=== PATIENT | female | born 1975 | race African-American/Black ===

== ENCOUNTER 2016-07-01 22:02 | Observation (INO) ==
[2016-07-01 22:45] LABS: Basophils % 0.1 % (0.0-0.8); Eosinophils # 0.1 10*3/uL (0.0-0.87); Eosinophils % 1.1 % (0.00-10.9); Hematocrit 39.2 VOL% (35.7-47.0); Hemoglobin 13.3 GM/DL (12.0-16.0); Immature Granulocytes % 0.3 %; Immature Granulocytes Absolute 0.02 #; Lymphocytes % 25.6 % (21.3-54.2); Mean Corpuscular HGB Conc 33.9 GM/DL (32-36); Mean Corpuscular Hemoglobin 26 PG (27-34); Mean Corpuscular Volume 76.6 FL (87-102); Monocytes # 0.4 10*3/uL (0.11-0.8); Monocytes % 5.3 % (1.7-12.7); Neutrophils # 5.4 10*3/uL (1.4-7.4); Neutrophils % 67.6 % (38.7-73.9); Platelet Count 212 T/CUMM (130-400); Red Blood Count 5.12 MC/CUMM (3.8-5.5); Red Cell Distribution Width 12.1 % (9.3-17.3)
--- NOTE | 2016-07-01 22:49 | EKG Report ---
Stationary ECG Study [facility] ER Test Date: 07/01/2016 10:20:45 PM Pat Name: FREYA BRADEN Department: Room: Gender: F Hand Screen Printer: Chari : 1975 Requested by: Dennis Short Order Number: [id number] Reading MD: CHASIDY FAROOQ Intervals [place] Rate: 104 P: 64 IN: 153 QRS: 25 QRSD: 97 T: 53 QT: 357 QTc: 417 Interpretive Statements SINUS TACHYCARDIA WITH OCCASIONAL VENTRICULAR PREMATURE COMPLEXES POSSIBLE LEFT ATRIAL ENLARGEMENT Electronically Signed On 07-02-16 06:51:33 RESTAURANT FLOOR MANAGER by CHASIDY FAROOQ [id number]
[2016-07-01 23:12] LABS: Alanine Aminotransferase 25 U/L (13-56); Albumin 3.6 G/DL (3.4-5.0); Alkaline Phosphatase 191 U/L (45-117); Aspartate Amino Transferase 14 U/L (0-37); Bilirubin,Total < 0.39 MG/DL (0.2-1.0); Blood Urea Nitrogen 13 MG/DL (7-18); Calcium 9.6 MG/DL (8.5-10.1); Osmolality,Calculated 295.9 MOS/KG (273-304); Potassium 3.2 MMOL/L (3.5-5.1); Sodium 129 MMOL/L (136-145); Total Protein 8.2 G/DL (6.4-8.3); Troponin I Only < 0.015 NG/ML (0.00-0.045)
[2016-07-01 23:13] LABS: Barbiturates Screen,Urine Negative (Negative); Benzodiazepines Screen,Urine Negative (Negative); Cannabinoid Screen,Urine Negative (Negative); Opiate Screen,Urine Negative (Negative); Phencyclidine Screen,Urine Negative (Negative)
[2016-07-01 23:16] LABS: Glucose 780 MG/DL (74-106)
--- NOTE | 2016-07-01 23:24 | Emergency Department Note ---
Evie Mijares Kasabria, am scribing for, and in the presence of, Dennis Short MD 22:37. Han Mijares Robert M, MD, personally performed the services described in this documentation, ascribed by Aquiles Case in my presence, and it is both accurate and complete 324 . Arrival - Arrival Chief Complaint: Arrhythmia/Palpitations Stated Complaint: weak, heart flutters ED Nursing Triage Note: PT STATES THAT SHE FEELS LIKE HER HEART HAS BEEN FLUTTERING. STATES THAT IT STARTED TODAY WHILE SHE WAS AT WORK. DENIES ANY CARDIAC HISTORY. PT STATES THAT SHE IS SHORT OF BREATH SINCE STARTED. DENIES PAIN AT THIS TIME. B/P RIGHT ARM 163/128 LEFT ARM 181/108 Mode of Arrival: Ambulatory Limitations: No Limitations Source: Patient Time Seen by Provider: 07/01/16 22:28 - History of Present Illness HPI Narrative: Pt is a 41 y/o black female presenting to the ED with c/o heart fluttering that has been ongoing for weeks. Pt has some SOB since the pain onset. She states this onset tonight while she was at work. Her was concerned so he brought her in the ED. Her caffeine intake has been abundant although she has cut back some. Heart disease is prevent in her family but she does not have any cardiac problems.Pt currently denies chest pain, numbness, tingling, radiating pain, and vision change. She has a PMHx of HTN and is complaint with her medications. Consistency: constant Severity: moderate Date of Last Menstrual Period: 06/25/16 Allergies/Adverse Reactions: Allergies Allergy/AdvReac Type Severity Reaction Status Date / Time No Known Allergies Allergy Verified 07/01/16 22:13 Review of System - Review of System 12 point system: reviewed and no additional remarkable complaints except as stated - Review of System Constitutional: Absent: chills, fever, weakness Eyes: Absent: vision change Head/Ears/Nose/Throat: Absent: nasal drainage Respiratory: Absent: cough, wheezing Cardiovascular: Present: palpitations, dyspnea on exertion. Absent: chest pain , syncope Gastrointestinal: Absent: abdominal pain, nausea, vomiting, diarrhea Genitourinary female: Absent: dysuria Musculoskeletal: Absent: arm pain, back pain, neck pain Skin: Absent: rash Neurological: Absent: headache, weakness, numbness, confusion, abnormal gait, vertigo Psychiatric: Absent: anxiety Endocrine: Absent: fatigue Hematological/Lymphatic: Absent: easy bleeding Allergic/Immunologic: Absent: facial swelling Medical,Surgical,& Family Hx - Medical History Cardio: History of: Hypertension - Social History Smoking Status: Never smoker Frequency of Alcohol Use: Rarely Type of Drug Use: None Exam Vital Signs: Vital Signs Temperature 97.9 F 07/01/16 22:08 Pulse Rate 80 07/01/16 22:08 Respiratory Rate 18 07/01/16 22:08 Blood Pressure 163/128 07/01/16 22:08 O2 Sat by Pulse Oximetry 98 07/01/16 22:08 - General General appearance: alert, in no apparent distress - Head Head exam: Present: atraumatic, normocephalic, normal inspection - Eye Eye exam: Present: normal appearance, PERRL, EOMI - ENT ENT exam: Present: normal exam, normal oropharynx, mucous membranes moist, TM's normal bilaterally, normal external ear exam - Neck Neck exam: Present: normal inspection, full ROM, trachea midline. Absent: tenderness - Chest Chest inspection: Present: normal inspection, symmetric chest wall rise. Absent : tenderness - Respiratory Respiratory exam: Present: normal lung sounds bilaterally - Cardiovascular Cardiovascular exam: Present: regular rate, normal rhythm, normal heart sounds, other (occasional PVCs on monitor ) - Abdominal Exam Abdominal exam: Present: soft, normal bowel sounds. Absent: distention, tenderness, guarding - Extremities Exam Extremities exam: Present: normal inspection, full ROM, normal capillary refill. Absent: tenderness, pedal edema, calf tenderness - Back Exam Back exam: Present: normal inspection, full ROM. Absent: tenderness - Neurological Exam Neurological exam: Present: alert, oriented X3, CN II-XII intact, normal gait, reflexes normal - Psychiatric Psychiatric exam: Present: normal affect, normal mood - Skin Skin exam: Present: warm, dry, intact, normal color. Absent: rash, diaphoresis , erythema Course - Reevaluation(s) Reevaluation #1: On further review, the patient states she has been drinking a lot of water over the last several weeks. She did not know she was diabetic. Time: 23:25 - Consultations Consultation #1: Dr. Jeffery Eldridge will evaluate and admit the patient. Time: 23:25 Results - Labs CBC & BMP: 07/01/16 22:33 07/01/16 22:33 Lab Results: I have reviewed the patients labs Labs: Lab Results WBC 8.0 T/CUMM (4-12) 07/01/16 22:33 RBC 5.12 MC/CUMM (3.8-5.5) 07/01/16 22:33 Hgb 13.3 GM/DL (12.0-16.0) 07/01/16 22:33 Hct 39.2 VOL% (35.7-47.0) 07/01/16 22:33 MCV 76.6 FL (87-102) L 07/01/16 22:33 MCH 26 PG (27-34) L 07/01/16 22: MCHC 33.9 GM/DL (32-36) 07/01/16 22: RDW 12.1 % (9.3-17.3) 07/01/16: Plt Count 212 T/CUMM (130-400) 07/01/16 22:33 Neut % (Auto) 67.6 % (38.7-73.9) 07/01/16 22:33 Lymph % (Auto) 25.6 % (21.3-54.2) 07/01/16 22:33 Irion % (Auto) 5.3 % (1.7-12.7) 07/01/16 22: Eos % (Auto) 1.1 % (0.00-10.9) 07/01/16: Baso % (Auto) 0.1 % (0.0-0.8) 07/01/16 22:33 Neut # (Auto) 5.4 10*3/uL (1.4-7.4) 07/01/16 22:33 Lymph # (Auto) 2.0 10*3/uL (1.4-4.0) 07/01/16 22:33 Irion # (Auto) 0.4 10*3/uL (0.11-0.8) 07/01/16 22: Eos # (Auto) 0.1 10*3/uL (0.0-0.87) 07/01/16 22:33 Baso # (Auto) 0.0 10*3/uL (0.0-0.2) 07/01/16 22: Immature Gran % 0.3 % 07/01/16 22:33 Nucleated RBC % 0.0 /100WBC 07/01/16 22:33 Immature Gran # 0.02 # 07/01/16 22:33 Nucleated RBCs # 0.00 10*3/uL 07/01/16 22:33 Sodium 129 MMOL/L (136-145) L 07/01/16 22:33 Potassium 3.2 MMOL/L (3.5-5.1) L 07/01/16 22:33 Chloride 86 MMOL/L (98-107) L 07/01/16 22:33 Carbon Dioxide 29 MMOL/L (21-32) 07/01/16 22:33 Anion Gap 17.2 MMOL/L (5.0-15.0) H 07/01/16 22:33 BUN 13 MG/DL (7-18) 07/01/16 22:33 Creatinine 1.30 MG/DL (0.55-1.02) H 07/01/16 22:33 GFR Calculation 89 ML/MIN 07/01/16 22:33 BUN/Creatinine Ratio 10.00 RATIO (6.00-20.00) 07/01/16 22:33 Glucose 780 MG/DL (74-106) H* 07/01/16 22:33 Calculated Osmolality 295.9 MOS/KG (273-304) 07/01/16 22:33 Calcium 9.6 MG/DL (8.5-10.1) 07/01/16 22:33 Total Bilirubin < 0.39 MG/DL (0.2-1.0) 07/01/16 22:33 AST 14 U/L (0-37) 07/01/16 22:33 ALT 25 U/L (13-56) 07/01/16 22:33 Alkaline Phosphatase 191 U/L (45-117) H 07/01/16 22:33 Troponin I < 0.015 NG/ML (0.00-0.045) 07/01/16 22:33 Total Protein 8.2 G/DL (6.4-8.3) 07/01/16 22:33 Albumin 3.6 G/DL (3.4-5.0) 07/01/16 22:33 Globulin 4.6 G/DL (2.3-3.5) H 07/01/16 22:33 Albumin/Globulin Ratio 0.7 RATIO (1.1-2.2) L 07/01/16 22:33 TSH 3rd Generation 1.030 uIU/ml (0.358-3.74) 07/01/16 22:33 Urine Opiates Screen Negative (Negative) 07/01/16 22:59 Ur Barbiturates Screen Negative (Negative) 07/01/16 22:59 Ur Phencyclidine Scrn Negative (Negative) 07/01/16 22:59 U Amphetamine/Methamph Negative (Negative) 07/01/16 22:59 U Benzodiazepines Scrn Negative (Negative) 07/01/16 22:59 U Cocaine Metab Screen Negative (Negative) 07/01/16 22:59 U Cannabinoids Screen Negative (Negative) 07/01/16 22:59 - EKG EKG results: interpreted by PRIYA MELVIN, sinus rhythm Disposition Clinical Impression: New onset type 2 diabetes mellitus, Polydipsia, Palpitations, Hypertension Case discussed with: patient, patient's family Disposition: Still a Patient Condition: Stable Time of Disposition: 23:26
[2016-07-01] MEDS ORDERED: POTASSIUM CHLORIDE 20 MEQ TABLET PO STA (23:28)
[2016-07-01] MEDS ORDERED: INSULIN LISPRO 100 UNIT/ML SUBCUT STA (23:28)
[2016-07-01] MEDS ORDERED: POTASSIUM CHLORIDE 20 MEQ TABLET PO ONE (23:42)
[2016-07-01 23:43] LABS: Free T4 (Free Thyroxine) 1.23 NG/DL (0.76-1.46)
[2016-07-01] MEDS ORDERED: INSULIN LISPRO 100 UNIT/ML SUBCUT ONE (23:44)
[2016-07-01] MEDS ORDERED: SODIUM CHLORIDE 0.9% 1,000 ML IV STA (23:57)
--- NOTE | 2016-07-02 00:09 | Hospitalist History & Physical ---
Assessment and Plan (1) New onset type 2 diabetes mellitus Status: Acute Current Visit: Yes (2) Polydipsia Status: Acute Current Visit: Yes (3) Palpitations Status: Acute Current Visit: Yes (4) Hypertension Status: Acute Assessment and plan: We will admit the patient to our service. We will give her IV fluids and insulin initially on a sliding scale basis. Once we determine better how she responds to insulin she would be better served by long-acting insulin with a short acting insulin with meals. Need to have some when necessary medications for her blood pressure and continue her home meds as appropriate. Current Visit: Yes History of Present Illness Chief complaint: palpitations History of present illness: Ms. Campos is a 41 year old female with past medical history of hypertension presents with a two-week history of palpitations and polydipsia. Patient reports that she has been drinking water excessively and continuously all day and all during the night. Patient says that she feels thirsty all the time. She also was having aches palpitations sensation in her chest and that's what made her come up to the hospital. Upon initial presentation patient was found to have a glucose of 780. Patient has no known history of diabetes and no family history of diabetes. She does see a doctor regularly over in [facility]. I was consulted to admit her. Home Medications Medication Instructions Recorded Confirmed Type Carvedilol [Coreg] 6.25 mg PO BID 07/01/16 07/02/16 History Ferrous Sulfate [Ferrous Sulfate 325 mg PO TID 07/01/16 07/02/16 History Cap] amLODIPine [Norvasc] 10 mg PO DAILY 07/01/16 07/02/16 History hydroCHLOROthiazide 25 mg PO DAILY 07/01/16 07/02/16 History [Hydrochlorothiazide] Allergies Allergy/AdvReac Type Severity Reaction Status Date / Time No Known Allergies Allergy Verified 07/01/16 22:13 Medical,Surgical,& Family Hx - Medical History Cardio: History of: Hypertension - Surgical History Additional Surgical History: none - Family History Family History: Reports;: Family Heart Disease, Family Hypertension Additional Family History: Lupus - Social History Smoking Status: Never smoker Frequency of Alcohol Use: Rarely Type of Drug Use: None 12 point system: reviewed and no additional remarkable complaints except as stated Exam - Constitutional Vitals: Period Temp Pulse Resp BP Sys/Chand Pulse Ox Last 24 Hr 97.9 F-97.9 F 80-80 18-18 163-163/128-128 98 General appearance: morbidly obese - Head Head exam: Present: normal inspection - Eye Eye exam: Present: EOMI Pupils: Present: RICARDO - ENT ENT exam: Present: normal exam - Neck Neck exam: Present: normal inspection - Respiratory Respiratory exam: Present: clear to auscultation bilaterally - Cardiovascular Cardiovascular exam: Present: regular rate and rhythm - GI/Abdominal GI/Abdominal exam: Present: normal bowel sounds - Extremities Exam Extremities exam: Present: normal inspection - Back Exam Back exam: Present: normal inspection - Neurological Exam Neurological exam: Present: alert, oriented X3 - Psychiatric Psychiatric exam: Present: normal affect, normal mood - Skin Skin exam: Present: normal color Results - Labs CBC & BMP: 07/01/16 22:33 07/01/16 22:33
[2016-07-02] MEDS ORDERED: GLUCAGON 1 MG VIAL IM PRN ×2 (00:12)
[2016-07-02] MEDS ORDERED: ACETAMINOPHEN 325 MG TABLET PO PRN (00:12)
[2016-07-02] MEDS ORDERED: ZALEPLON 5 MG CAPSULE PO PRN (00:12)
[2016-07-02] MEDS ORDERED: PROMETHAZINE 25 MG TABLET PO PRN (00:12)
[2016-07-02] MEDS ORDERED: ONDANSETRON 4 MG/2 ML VIAL IV PRN (00:12)
[2016-07-02] MEDS ORDERED: LABETALOL 20 MG/4 ML SYRINGE IV PRN (00:12)
[2016-07-02] MEDS ORDERED: DEXTROSE 50% 25 GM/50 ML VIAL IV PRN ×2 (00:12)
[2016-07-02] MEDS: INSULIN LISPRO 100 UNIT/ML SUBCUT SCH ×6 (01:41→22:24)
[2016-07-02] MEDS: SODIUM CHLORIDE 0.9% 1,000 ML IV SCH ×4 (01:42→20:23)
[2016-07-02 07:10] LABS: Basophils % 0.1 % (0.0-0.8); Eosinophils # 0.1 10*3/uL (0.0-0.87); Eosinophils % 1.8 % (0.00-10.9); Hematocrit 36.6 VOL% (35.7-47.0); Hemoglobin 12.2 GM/DL (12.0-16.0); Immature Granulocytes % 0.7 %; Immature Granulocytes Absolute 0.05 #; Lymphocytes # 2.5 10*3/uL (1.4-4.0); Mean Corpuscular HGB Conc 33.3 GM/DL (32-36); Mean Corpuscular Hemoglobin 26 PG (27-34); Mean Corpuscular Volume 77.1 FL (87-102); Mean Platelet Volume 14.2 FL (9.6-12.0); Monocytes # 0.4 10*3/uL (0.11-0.8); Monocytes % 5.3 % (1.7-12.7); Neutrophils # 3.8 10*3/uL (1.4-7.4); Neutrophils % 55.1 % (38.7-73.9); Platelet Count 188 T/CUMM (130-400); Red Blood Count 4.75 MC/CUMM (3.8-5.5); Red Cell Distribution Width 12.1 % (9.3-17.3); White Blood Count 6.8 T/CUMM (4-12)
[2016-07-02 07:36] LABS: Osmolality,Calculated 284.5 MOS/KG (273-304)
[2016-07-02] MEDS: hydroCHLOROthiazide 25 MG TABLET PO SCH (08:40)
[2016-07-02] MEDS: ENOXAPARIN 40 MG/0.4 ML SYRINGE SUBCUT SCH (08:40)
[2016-07-02] MEDS: PANTOPRAZOLE 40 MG TABLET PO SCH (08:40)
[2016-07-02] MEDS: amLODIPine 10 MG TABLET PO SCH (08:40)
[2016-07-02] MEDS: CARVEDILOL 6.25 MG TABLET PO SCH ×2 (08:40→20:47)
[2016-07-02] MEDS: FERROUS SULFATE 325 MG TABLET PO SCH ×3 (08:40→20:46)
--- NOTE | 2016-07-02 08:45 | XRay Report ---
XR chest 1V portable Indication: Chest pain, shortness of breath Comparison: None available Findings: The heart and mediastinum are normal in size and configuration. The pulmonary vascularity is normal in caliber. No lung infiltrates, effusions, pneumothorax or other abnormality is demonstrated. Impression: Normal chest x-ray PROCEDURE INTERPRETED AT [facility] DEPARTMENT OF RADIOLOGY Final Report Signed by: Dr. Billy Raymond
[2016-07-02] MEDS ORDERED: POTASSIUM CHLORIDE 20 MEQ TABLET PO ONE (11:23)
--- NOTE | 2016-07-02 11:27 | Hospitalist Progress Note ---
Hospitalist: Subjective Interval history: Patient denies any lightheadedness or dizziness. She denies any chest pain or shortness of breath. She still reports some intermittent palpitations but no significant dysrhythmias have been noted on telemetry. No fever. Tolerating oral intake. No abdominal pain. No nausea or vomiting. Last bowel movement was yesterday and without any melena or bright red blood per rectum. No diarrhea or constipation. Exam - Constitutional Vitals: Period Temp Pulse Resp BP Sys/Chand Pulse Ox Last 24 Hr 97.7 F-98.8 F 83-89 16-20 131-163/78-95 97-100 General appearance: no acute distress, over weight - Head Head exam: Present: normal inspection, normocephalic, atraumatic - Eye Eye exam: Present: EOMI. Absent: conjunctival injection, scleral icterus - ENT ENT exam: Present: normal exam - Neck Neck exam: Present: normal inspection. Absent: lymphadenopathy, tenderness, thyromegaly - Respiratory Respiratory exam: Present: clear to auscultation bilaterally. Absent: accessory muscle use - Cardiovascular Cardiovascular exam: Present: regular rate and rhythm. Absent: diastolic murmur , systolic murmur - GI/Abdominal GI/Abdominal exam: Present: normal bowel sounds, soft. Absent: distended, mass , organomegaly, tenderness - Extremities Exam Extremities exam: Present: normal inspection, normal capillary refill. Absent: edema - Neurological Exam Neurological exam: Present: alert, oriented X3. Absent: motor sensory deficit - Psychiatric Psychiatric exam: Present: normal affect, normal mood - Skin Skin exam: Present: normal color, warm, dry Results - Labs CBC & BMP: 07/02/16 06:34 07/02/16 06:34 Labs: Reviewed - Impressions Assessment and Plan (1) New onset type 2 diabetes mellitus Status: Acute Current Visit: Yes - Check HgbA1c. Schedule long acting insulin with Novolog 70/30 25U BID initially and titrate upward as needed - Check Fasting lipid panel - Start ASA if no contraindications noted - Continue diabetic diet - I provided patient with some education regarding follow-up treatment/labs. development educator consult placed for insulin administration teaching, diet/ nutrition education (2) Hypokalemia Status: Acute Current Visit: Yes - replace and recheck. Check Mg and Phos and replaced as needed (3) Palpitations Status: Acute Current Visit: Yes - Cont IVF as this may have been related to dehydration due to osmotic diuresis. TSH is normal. Continue telemetry for now (4) Hypertension Essential Status: Acute Assessment and plan: - relatively controlled. Cont current management
[2016-07-02] MEDS: INSULIN ASPART PROTAMINE/ASPART 70/30 100 UNIT/ML SUBCUT SCH (16:39)
[2016-07-03] MEDS: INSULIN LISPRO 100 UNIT/ML SUBCUT SCH ×6 (01:26→22:16)
[2016-07-03 05:34] LABS: Calcium 8.5 MG/DL (8.5-10.1); Magnesium 1.8 MG/DL (1.8-2.4); Osmolality,Calculated 278.5 MOS/KG (273-304); Phosphorous 2.9 MG/DL (2.5-4.9); Potassium 3.1 MMOL/L (3.5-5.1)
[2016-07-03 05:42] LABS: Alanine Aminotransferase 16 U/L (13-56); Albumin 2.8 G/DL (3.4-5.0); Alkaline Phosphatase 85 U/L (45-117); Aspartate Amino Transferase 15 U/L (0-37); Bilirubin,Direct 0.1 MG/DL (0.0-0.20); Bilirubin,Indirect 0.3 MG/DL (0.0-1.0); Bilirubin,Total < 0.39 MG/DL (0.2-1.0); Total Protein 6.2 G/DL (6.4-8.3)
[2016-07-03 06:17] LABS: Risk Ratio 6.06; VLDL CHOLESTEROL 33.4 MG/DL
[2016-07-03] MEDS: SODIUM CHLORIDE 0.9% 1,000 ML IV SCH (07:25)
[2016-07-03] MEDS: PANTOPRAZOLE 40 MG TABLET PO SCH (08:43)
[2016-07-03] MEDS: ENOXAPARIN 40 MG/0.4 ML SYRINGE SUBCUT SCH (08:43)
[2016-07-03] MEDS: hydroCHLOROthiazide 25 MG TABLET PO SCH (08:43)
[2016-07-03] MEDS: FERROUS SULFATE 325 MG TABLET PO SCH ×3 (08:43→20:13)
[2016-07-03] MEDS: amLODIPine 10 MG TABLET PO SCH (08:43)
[2016-07-03] MEDS: CARVEDILOL 6.25 MG TABLET PO SCH ×2 (08:43→20:13)
[2016-07-03] MEDS: INSULIN ASPART PROTAMINE/ASPART 70/30 100 UNIT/ML SUBCUT SCH ×2 (08:44→17:13)
[2016-07-03] MEDS ORDERED: POTASSIUM CHLORIDE 20 MEQ TABLET PO ONE (10:50)
--- NOTE | 2016-07-03 10:55 | Hospitalist Progress Note ---
Hospitalist: Subjective Interval history: Patient denies any lightheadedness or dizziness. She is tolerating oral intake well. No nausea vomiting. Positive bowel movement. No fever. Blood sugars have improved to the 100s-200 range. Exam - Constitutional Vitals: Period Temp Pulse Resp BP Sys/Chand Pulse Ox Last 24 Hr 97.7 F-98.9 F 66-90 16-20 115-133/58-75 99-100 Exam: Patient is awake alert and oriented 3 lying in the hospital bed in no acute distress Cardiac exam reveals regular rate and rhythm normal S1-S2 no obvious murmurs rubs or gallops. Lungs are clear to auscultation bilaterally with good aeration nonlabored breathing noted Abdomen is soft nontender nondistended positive bowel sounds no organomegaly or masses appreciated Extremity exam skin is warm and well perfused no clubbing cyanosis or edema Neuro exam was nonfocal Results - Labs CBC & BMP: 07/02/16 06:34 07/03/16 04:15 Labs: Hemoglobin A1c was 11.7, LDL was 159, HDL of 35 - Impressions Assessment and Plan (1) New onset type 2 diabetes mellitus Status: Acute Current Visit: Yes - Uncontrolled with HgbA1c 11.7. Cont long acting insulin with Novolog 70/30 but increased to 35U BID. Adjust insulin based on requirements. - Start ASA if no contraindications noted - Continue diabetic diet - I provided patient with some education regarding follow-up treatment/labs. clinical nurse educator consult placed for insulin administration teaching, diet/ nutrition education and will evaluate in am. (2) Dyslipidemia Status: Acute Current Visit: Yes -Start a statin. (3) Palpitations- resolved. Status: Acute Current Visit: Yes - Can hold IVF as this may have been related to dehydration due to osmotic diuresis and now she is much better hydrated. TSH is normal. Discontinue telemetry for now. (4) Hypertension Essential Status: Acute Assessment and plan: - controlled. Cont current management I will be away several days. One of my associates will follow in my absence. Specialty Discharge - Follow Up or Referrals
[2016-07-03] MEDS ORDERED: SIMVASTATIN 20 MG TABLET PO SCH (21:00)
[2016-07-04] MEDS: INSULIN LISPRO 100 UNIT/ML SUBCUT SCH ×3 (01:28→10:41)
[2016-07-04] MEDS: INSULIN ASPART PROTAMINE/ASPART 70/30 100 UNIT/ML SUBCUT SCH (08:05)
--- NOTE | 2016-07-04 08:33 | Hospitalist Progress Note ---
Assessment and Plan - Time spent with patient Time spent with patient: Less than 30 minutes (1) Hyperlipidemia Status: Acute Assessment and plan: pt has been started on a statin. will need to follow up w her PCP, Dr Gonsalez in [place]. Current Visit: Yes (2) New onset type 2 diabetes mellitus Status: Acute Assessment and plan: blood sugars under much better control. will discuss w dr alexis for any changes. DM educators still need to see pt this am. will need to follow up w her PCP. Current Visit: Yes (3) Palpitations Status: Acute Assessment and plan: palpitations have resolved. NSR per am EKG. Current Visit: Yes (4) Hypertension Status: Acute Assessment and plan: pt under good control w current meds. Current Visit: Yes Hospitalist: Subjective Interval history: pt feeling much better today. heart hasn't been fluttering. DM educators have not been by yet this morning. feels like she is ready for dc. Exam - Constitutional Vitals: Period Temp Pulse Resp BP Sys/Chand Pulse Ox Last 24 Hr 97.6 F-98.3 F 69-81 16-20 109-147/49-84 99-100 41AAF, NAD, alert and oriented chest clear cv rrr, no murmurs abd soft, nt ext no edema Results - Labs CBC & BMP: 07/02/16 06:34 07/03/16 04:15 Lab Results: I have reviewed the past 24 hour labs - EKG EKG results: sinus rhythm Specialty Discharge - Follow Up or Referrals
[2016-07-04] MEDS ORDERED: POTASSIUM CHLORIDE 20 MEQ TABLET PO SCH (09:00)
[2016-07-04] MEDS ORDERED: ASPIRIN CHEW 81 MG TABLET PO SCH (09:00)
[2016-07-04] MEDS ORDERED: predniSONE 20 MG TABLET PO SCH (09:00)
[2016-07-04] MEDS: PANTOPRAZOLE 40 MG TABLET PO SCH (09:22)
[2016-07-04] MEDS: CARVEDILOL 6.25 MG TABLET PO SCH (09:22)
[2016-07-04] MEDS: amLODIPine 10 MG TABLET PO SCH (09:22)
[2016-07-04] MEDS: FERROUS SULFATE 325 MG TABLET PO SCH (09:22)
[2016-07-04] MEDS: hydroCHLOROthiazide 25 MG TABLET PO SCH (09:22)
[2016-07-04] MEDS: ENOXAPARIN 40 MG/0.4 ML SYRINGE SUBCUT SCH (09:27)
--- NOTE | 2016-07-04 09:40 | Discharge Summary ---
<Terrie Campo - Last Filed: 07/04/16 09:42> Hospital Course - Hospital Course Hospital Course: 41AAF w history of HTN admitted w palpitations and new onset of DM w blood sugars at 780. she was started on insulin and this has been adjusted. her palpitations have resolved w regulated BS and IVF. she was also found to have elevated triglycerides. her BS are under better control and pt feels much better. she is being dc home on insulin and zocor. she will follow up w her pcp dr gonsalez in 1wk for BS and lipid management. dc instructions were given. - Time spent with patient Time with patient DS: Less than 30 minutes Diagnosis - Discharge Diagnosis (1) Hyperlipidemia Status: Acute (2) New onset type 2 diabetes mellitus Status: Acute (3) Palpitations Status: Acute (4) Hypertension Status: Acute Specialty Discharge - Follow Up or Referrals Follow up with: Rah Gonsalez MD [Physician] - 1 Week (New Diabetes, hyperlipidemia) Discharge Plan - Discharge Data Disposition: Disch To Home/Self Care Condition at Discharge: Stable Discharge Diet: diabetic diet Activity: resume usual activities as tolerated - Discharge Medications New Potassium Chloride Cap/Tab [K Dur] 20 meq PO DAILY #7 tablet Aspirin Chew Tab 81 mg PO DAILY #100 tablet Insulin Aspart Prot/Asp 70/30 [NovoLOG Mix 70/30] 35 unit SUBCUT BIDAC 60 Days Simvastatin [Zocor] 20 mg PO BEDTIME #60 tablet Continue Ferrous Sulfate [Ferrous Sulfate Cap] 325 mg PO TID Carvedilol [Coreg] 6.25 mg PO BID hydroCHLOROthiazide [Hydrochlorothiazide] 25 mg PO DAILY amLODIPine [Norvasc] 10 mg PO DAILY - Follow Up or Referral Follow Up: Rah Gonsalez MD [Physician] - 1 Week (New Diabetes, hyperlipidemia) - Forms/Instructions Instructions: Meal Planning with Diabetes Exchanges (DC) Exam - Constitutional Vitals: Period Temp Pulse Resp BP Sys/Chand Pulse Ox Last 24 Hr 97.6 F-98.3 F 69-81 16-20 109-147/49-84 99-100 Discharge Results Labs on day of discharge: Labs from last 24 hours 07/04/16 07/04/16 07/04/16 07:19 04:23 01:25 POC Glucose 216 H 214 H 188 H 07/03/16 07/03/16 07/03/16 21:57 16:32 14:01 POC Glucose 265 H 247 H 283 H 07/03/16 10:47 POC Glucose 284 H DS: Provider Date of admission: 07/02/16 00:12 Primary care physician: . No PCP Attending physician on admission: Clara Denton MD Consults: 07/02/16 01:37 Consult to [facility], Educator [CONS] Routine Reason for Oil Burner Repairer: Diabetes Education 07/02/16 11:20 Consult to [facility], Educator [CONS] Routine Reason for Oil Burner Repairer: Diabetes Education Initial Insulin Education Diet Discharging clinician: CARYN Hernandez <Octavio Kaplan - Last Filed: 07/04/16 10:08> Discharge Plan - Discharge Data Condition at Discharge: Stable Discharge Diet: diabetic diet Activity: resume usual activities as tolerated
--- NOTE | 2016-07-04 11:39 | Physician Query Form ---
CLICK EDIT DOCUMENT TO SELECT QUERY ANSWER --> OK --> SIGN Amy Gasca RN Clinical Boarding Machine Operator W) [phone] (f) [phone] [email or web address] PROVIDERS: Make your selection(s) from the choices in EACH section by typing an "x" and enter comments in the comment section. Please use your independent medical judgment in providing your response. This request does not imply that any particular answer is desired or expected. CLINICAL INDICATORS: (Providers should not edit this section) Based on documentation of serum sodium level of 129. Treated with NS bolus followed by NS infusion. Repeat sodium level 139. Based on the above, could you clarify the appropriate diagnosis, if significant , that supports the above abnormalities and additional evaluation, monitoring, and/or treatment rendered: ( ) Hyponatremia ( ) Did NOT have Hyponatremia (X ) Other, please specify:the patient had pseudohyponatremia caused by hyperglycemia ( ) Clinically unable to determine COMMENTS: Use of terms such as suspected, likely, or probable (associated with a specific diagnosis that is being evaluated, monitored, or treated as if it exists) are acceptable and can be restated in the discharge summary if not ruled out. MTDD
[2016-07-04 11:52] VITALS: BP 137/78
== END 2016-07-04 11:15 | disposition home or self-care (01) ==
LOC: N.ED 22:02 → N.EDINP 07-02 00:12 → SUATTDRO 07-02 00:12 → INTOOBSV 07-02 00:12 → N.5E 07-02 01:01
PROVIDERS: ADMIT Pediatrics; ATTEND Internal Medicine